=== PATIENT | male | born 1970 | race Caucasian/White ===

== ENCOUNTER 2017-06-10 21:37 | Emergency (ER) | payer OTHER ==
[~2017-06-10] VITALS: Ht 175.3 cm; Wt 78.6 kg
[~2017-06-10 21:37] MED LIST: METF850T4 PO
[2017-06-10 21:56] VITALS: BP 120/76
[2017-06-10 22:25] VITALS: BP 129/82
== END 2017-06-10 22:25 | disposition home or self-care (01) ==
LOC: MED 21:37
DX: E11.621 Type 2 diabetes mellitus with foot ulcer (principal); Z86.73 Personal history of transient ischemic attack (TIA), and cerebral infarction without residual deficits; I10 Essential (primary) hypertension
CPT/HCPCS: 99283